=== PATIENT | male | born 1965 | race African-American/Black ===

== ENCOUNTER 2017-04-03 17:48 | Emergency (ER) | payer BC, OTHER ==
[~2017-04-03 17:48] MED LIST: Sodium Chloride 0.9% 1,000 ML BAG ONE
--- NOTE | 2017-04-03 19:26 | RAD ---
PORTABLE SUPINE CHEST ONE VIEW: History: 51-year-old male with history of tube placement. FINDINGS: An endotracheal tube is noted in place at the cervicothoracic junction. This could be advanced roughl y 7 or so cm to more completely enter the trachea. Heart size is within normal limits. No confluent p neumonia or overt edema. There is a moderate amount of gas in the somewhat distended stomach. IMPRESSION: Endotracheal tube at the cervicothoracic junction which could probably be advanced up to 7 cm for mor e optimal positioning. No significant acute intrathoracic disease. Moderate amount of gas in the stom ach. Findings were discussed with a nurse in the ER at 6:34 p.m. POS: [facility]
[2017-04-03 19:37] LABS: CKMB 3.7 ng/mL (0-6.6); Troponin I Less than 0.010 ng/mL (< 0.028)
[2017-04-03 19:39] LABS: Anion Gap 27 mmol/L (10-20); BUN (Urea Nitrogen) 7 mg/dL (8.4-25.7); Bilirubin, Total 0.3 mg/dL (0.2-1.2); Calc. Creatinine Clearance 0 mL/min (70-130); Calcium 8.7 mg/dL (7.8-10.44); Carbon Dioxide 15 mmol/L (22-29); Chloride 102 mmol/L (98-107); Estimated GFR-MDRD Greater than 90; Glucose 233 mg/dL (70-105); Potassium 3.5 mmol/L (3.5-5.1); Protein, Total 8.8 g/dL (6.0-8.3); Sodium 140 mmol/L (136-145)
[2017-04-03 19:40] LABS: ALT (SGPT) 43 U/L (8-55); AST (SGOT) 90 U/L (5-34); Albumin 4.3 g/dL (3.5-5.0); Alcohol 267 mg/dL (Less than 10); Alkaline Phosphatase 87 U/L (40-150); Globulin 4.5 g/dL (2.4-3.5)
[2017-04-03 19:41] LABS: %Lymphocytes 49.3 % (21.0-51.0); %Neutrophils 36.8 % (42.0-75.0); Hemoglobin 15.4 g/dL (14.0-18.0); Manual Diff?? NO; Mean Corpuscular HGB CONC 31.4 g/dL (32.0-36.0); Mean Corpuscular Volume 98.9 fL (80.0-94.0); Mean Platelet Volume 7.1 fL (7.4-10.4); Platelet Count 214 thou/uL (130-400); RBC Distribution Width 14.2 % (11.5-14.5); Red Blood Cell (RBC) Count 4.98 mill/uL (4.70-6.10); White Blood Cell (WBC) Count 11.9 thou/uL (4.8-10.8)
[2017-04-03 19:42] LABS: #Basophils 0.2 thou/uL (0.0-0.2); #Eosinphils 0.7 thou/uL (0.0-0.7); #Lymphocytes 5.9 thou/uL (1.20-3.40); #Monocytes 0.8 thou/uL (0.11-0.59); #Neutrophils 4.4 thou/uL (1.40-6.50); %Basophils 1.9 % (0.0-1.0); %Eosinophils 5.8 % (0.0-10.0); %Monocytes 6.3 % (0.0-10.0)
[2017-04-03 19:43] LABS: Acetaminophen Less than 6.0 mcg/mL (6.0-30.0); Alcohol 267 mg/dL (Less than 10); CK (CPK) 260 U/L (30-200)
[2017-04-03 19:44] LABS: Salicylate Less than 8.0 mg/dL (15.0-30.0)
[2017-04-03 19:49] LABS: Amphetamine Not Detected (NotDetected); Barbiturates Screen Not Detected (NotDetected); Benzodiazepine Screen Not Detected (NotDetected); Cocaine Metabolite Screen Not Detected (NotDetected); Medtox Control Line Valid? VALID (VALID); Methadone Not Detected (NotDetected); Methamphetamine Not Detected (NotDetected); Opiate Screen Not Detected (NotDetected); Oxycodone Screen Not Detected (NotDetected); Phencyclidine (PCP) Not Detected (NotDetected); THC/Cannabinoid Screen Not Detected (NotDetected); Tricyclic Screen Not Detected (NotDetected)
[2017-04-03 22:21] LABS: Bilirubin Negative (Negative); Blood, Urine Trace (Negative); Clarity Clear (Clear); Glucose, Urine (Dipstick) Negative (Negative); Leukocyte Negative (Negative); Nitrite Negative (Negative); Protein, Urine (Dipstick) Negative (Neg-Trace); Urobilinogen 0.2 mg/dL (0.2-1.0); pH, Urine 5.5 (5.0-9.0)
[2017-04-03 22:22] LABS: Specific Gravity, Urine 1.002 (1.002-1.036)
[2017-04-03 22:23] LABS: Bacteria/HPF None Seen HPF (None Seen); RBC/HPF 0-3 HPF (0-3); Squamous Epithelial 0-3 HPF (0-3)
== END 2017-04-03 18:39 | disposition short-term general hospital (02) ==
LOC: MADERS 17:48
DX: J98.8 Other specified respiratory disorders (principal)
CPT/HCPCS: 31500; 31511; 51702; 71010; 80053; 80306; 80307; 81003; 81015; 82550; 82553; 84484; 85025; 94760; 96374; J7050

== ENCOUNTER 2019-03-21 16:44 | Emergency (ER) | payer OTHER ==
[2019-03-21] MEDS ORDERED: Ibuprofen 100 MG/5 ML UDCUP ONE (16:54)
[2019-03-21] MEDS ORDERED: Acetaminophen 650 MG Suppository ONE (17:00)
[2019-03-21] MEDS ORDERED: Sodium Chloride 0.9% 1,000 ML ONE ×3 (17:04→21:05)
[2019-03-21 17:13] LABS: #Basophils 0.1 thou/uL (0.0-0.2); #Lymphocytes 1.3 thou/uL (1.20-3.40); #Monocytes 0.1 thou/uL (0.11-0.59); #Neutrophils 8.6 thou/uL (1.40-6.50); %Basophils 0.9 % (0.0-1.0); %Eosinophils 0.3 % (0.0-10.0); %Lymphocytes 12.4 % (21.0-51.0); %Monocytes 1.4 % (0.0-10.0); Mean Corpuscular HGB CONC 30.5 g/dL (32.0-36.0); Mean Corpuscular Hemoglobin 29.4 pg (27.0-31.0); Mean Corpuscular Volume 96.3 fL (78.0-98.0); Mean Platelet Volume 7.3 fL (7.4-10.4); Platelet Count 157 thou/uL (130-400); RBC Distribution Width 13.4 % (11.5-14.5); Red Blood Cell (RBC) Count 4.75 mill/uL (4.70-6.10); White Blood Cell (WBC) Count 10.1 thou/uL (4.8-10.8)
[2019-03-21] MEDS ORDERED: Cefepime 2 GM VIAL ONE (17:23)
[2019-03-21] MEDS ORDERED: Sodium Chloride 0.9% 100 ML ONE (17:24)
[2019-03-21 17:28] LABS: ALT (SGPT) 15 U/L (8-55); AST (SGOT) 14 U/L (5-34); Albumin 4.4 g/dL (3.5-5.0); Alkaline Phosphatase 66 U/L (40-110); Anion Gap 18 mmol/L (10-20); BUN (Urea Nitrogen) 13 mg/dL (8.4-25.7); Bilirubin, Total 1.5 mg/dL (0.2-1.2); Calc. Creatinine Clearance 0 mL/min (70-130); Calcium 9.3 mg/dL (7.8-10.44); Carbon Dioxide 25 mmol/L (22-29); Chloride 102 mmol/L (98-107); Estimated GFR-MDRD Greater than 90; Globulin 3.8 g/dL (2.4-3.5); Glucose 121 mg/dL (70-105); Potassium 4.6 mmol/L (3.5-5.1); Protein, Total 8.2 g/dL (6.0-8.3); Sodium 140 mmol/L (136-145)
[2019-03-21 17:33] LABS: Bicarbonate (HCO3v) 26.9 mmol/L (22.0-28.0); CO2 Tension (PvCO2) 46.1 mmHg (40.0-50.0); Calcium, Ionized 1.17 mmol/L (See Comments:); Chloride 102 mmol/L (98-107); Hemoglobin - Calc 17.1 g/dL (14.0-18.0); Potassium 4.7 mmol/L (3.5-5.1); Sodium 139 mmol/L (138-145); T. Carbon Dioxide 28.3 mmol/L (22.0-28.0); vO2 Saturation-calc 95.1 % (60.0-85.0)
[2019-03-21 17:45] LABS: CKMB 0.7 ng/mL (0-6.6)
--- NOTE | 2019-03-21 18:09 | CT ---
Exam: CT brain PROVIDED CLINICAL HISTORY: Altered mental status COMPARISON: 04/03/2017 FINDINGS: Evaluation is limited by patient motion near the vertex. The ventricular system is normal in size and morphology. There is no evidence for mass-producing intracranial hemorrhage. The extracranial soft tissues and osseous structures demonstrate no evidence for an acute abnormality. IMPRESSION: No evidence for intracranial hemorrhage or mass effect with limitations as above.
--- NOTE | 2019-03-21 18:10 | RAD ---
EXAM: Portable chest PROVIDED CLINICAL HISTORY: Fever COMPARISON: 04/05/2017 FINDINGS: Cardiac and mediastinal silhouette is within normal limits. No focal consolidation, pleural fluid or pneumothorax evident. IMPRESSION: No evidence for an acute cardiopulmonary process.
[2019-03-21 20:37] LABS: Bilirubin Negative (Negative); Blood, Urine Small (Negative); Clarity Clear (Clear); Glucose, Urine (Dipstick) Negative (Negative); Leukocyte Moderate (Negative); Nitrite Positive (Negative); Protein, Urine (Dipstick) 30 mg/dL (Neg-Trace); Urobilinogen 0.2 mg/dL (Less than 2)
[2019-03-21 20:42] LABS: Bacteria/HPF 1+ HPF (None Seen); RBC/HPF 0-3 HPF (0-3); Squamous Epithelial 0-3 HPF (0-3); WBC/HPF 21-50 HPF (0-3)
== END 2019-03-21 21:55 | disposition short-term general hospital (02) ==
LOC: MADERS 16:44
DX: A41.9 Sepsis, unspecified organism (principal); N39.0 Urinary tract infection, site not specified; F17.210 Nicotine dependence, cigarettes, uncomplicated
CPT/HCPCS: 70450; 71045; 80053; 81003; 81015; 82330; 82553; 82803; 83605; 83880; 84484; 85025; 87040; 87086; 87804; 93005; 96360; 96361; 96365; J0692; J3490; J7050

== ENCOUNTER 2021-08-02 16:47 | Emergency (ER) | payer OTHER ==
[~2021-08-02 16:47] MED LIST changes: +Iopamidol 370 76% 100 ML VIAL ONE; -Sodium Chloride 0.9% 1,000 ML BAG ONE
[2021-08-02 17:33] LABS: #Basophils 0.2 thou/uL (0.0-0.2); #Eosinphils 0.6 thou/uL (0.0-0.7); #Lymphocytes 1.6 thou/uL (1.20-3.40); #Monocytes 0.8 thou/uL (0.11-0.59); #Neutrophils 6.3 thou/uL (1.40-6.50); %Basophils 1.8 % (0.0-1.0); %Eosinophils 5.9 % (0.0-10.0); %Lymphocytes 16.5 % (21.0-51.0); %Monocytes 8.9 % (0.0-10.0); %Neutrophils 66.9 % (42.0-75.0); Hemoglobin 13.7 g/dL (14.0-18.0); Mean Corpuscular Hemoglobin 31.2 pg (27.0-31.0); Mean Corpuscular Volume 94.5 fL (78.0-98.0); Mean Platelet Volume 8.2 fL (7.4-10.4); Platelet Count 289 thou/uL (130-400); RBC Distribution Width 12.7 % (11.5-14.5); White Blood Cell (WBC) Count 9.5 thou/uL (4.8-10.8)
[2021-08-02 17:46] LABS: ALT (SGPT) 31 U/L (8-55); AST (SGOT) 32 U/L (5-34); Albumin 3.7 g/dL (3.5-5.0); Alkaline Phosphatase 91 U/L (40-110); Anion Gap 16 mmol/L (10-20); BUN (Urea Nitrogen) 11 mg/dL (8.4-25.7); Bilirubin, Total 0.3 mg/dL (0.2-1.2); Calc. Creatinine Clearance 0 mL/min (70-130); Calcium 9.5 mg/dL (7.8-10.44); Carbon Dioxide 29 mmol/L (22-29); Chloride 99 mmol/L (98-107); Globulin 4.6 g/dL (2.4-3.5); Glucose 108 mg/dL (70-105); Magnesium 2.1 mg/dL (1.6-2.6); Potassium 4.6 mmol/L (3.5-5.1); Protein, Total 8.3 g/dL (6.0-8.3); Sodium 139 mmol/L (136-145)
[2021-08-02] MEDS ORDERED: Diazepam 5 MG TAB ONE (17:49)
[2021-08-02] MEDS ORDERED: Lactated Ringer's 1,000 ML ONE (17:49)
[2021-08-02] MEDS ORDERED: Albuterol 200 PUFF (6.7GM INHALER) ONE (17:49)
[2021-08-02] MEDS ORDERED: Acetaminophen 500 MG TAB ONE (17:55)
[2021-08-02] MEDS ORDERED: predniSONE 20 MG TAB ONE (17:55)
[2021-08-02] MEDS ORDERED: predniSONE 10 MG TAB ONE (17:55)
[2021-08-02] MEDS ORDERED: Azithromycin 250 MG TAB ONE (20:22)
[2021-08-02] MEDS ORDERED: Azithromycin 200 MG/5 ML Oral Suspension ONE (20:23)
== END 2021-08-02 20:35 | disposition home or self-care (01) ==
LOC: MADERS 16:47
DX: J98.59 Other diseases of mediastinum, not elsewhere classified (principal); J44.1 Chronic obstructive pulmonary disease with (acute) exacerbation; E03.9 Hypothyroidism, unspecified; J39.8 Other specified diseases of upper respiratory tract; F17.210 Nicotine dependence, cigarettes, uncomplicated
CPT/HCPCS: 71045; 71046; 71260; 80053; 83605; 83735; 84443; 85025; 87040; 93005; 94760; J7120; J7512; Q9967

== ENCOUNTER 2021-08-08 21:24 | Emergency (ER) | payer OTHER ==
[2021-08-08] MEDS ORDERED: methylPREDNISolone Sod Succ/PF 125 MG/2 ML VIAL ONE (21:46)
[2021-08-08 22:11] LABS: #Basophils 0.2 thou/uL (0.0-0.2); #Eosinphils 0.3 thou/uL (0.0-0.7); #Lymphocytes 2.2 thou/uL (1.20-3.40); #Monocytes 1.2 thou/uL (0.11-0.59); #Neutrophils 6.3 thou/uL (1.40-6.50); %Basophils 1.9 % (0.0-1.0); %Lymphocytes 21.6 % (21.0-51.0); %Monocytes 11.5 % (0.0-10.0); Hemoglobin 13.1 g/dL (14.0-18.0); Mean Corpuscular HGB CONC 30.5 g/dL (32.0-36.0); Mean Corpuscular Hemoglobin 28.9 pg (27.0-31.0); Mean Corpuscular Volume 94.7 fL (78.0-98.0); Mean Platelet Volume 8.2 fL (7.4-10.4); Platelet Count 317 thou/uL (130-400); RBC Distribution Width 12.5 % (11.5-14.5); Red Blood Cell (RBC) Count 4.54 mill/uL (4.70-6.10); White Blood Cell (WBC) Count 10.1 thou/uL (4.8-10.8)
[2021-08-08 22:19] LABS: ALT (SGPT) 108 U/L (8-55); AST (SGOT) 62 U/L (5-34); Albumin 3.7 g/dL (3.5-5.0); Alkaline Phosphatase 97 U/L (40-110); Anion Gap 18 mmol/L (10-20); BUN (Urea Nitrogen) 10 mg/dL (8.4-25.7); Bilirubin, Total 0.5 mg/dL (0.2-1.2); Calc. Creatinine Clearance 0 mL/min (70-130); Calcium 9.8 mg/dL (7.8-10.44); Carbon Dioxide 29 mmol/L (22-29); Chloride 97 mmol/L (98-107); Globulin 4.7 g/dL (2.4-3.5); Glucose 97 mg/dL (70-105); Magnesium 2.1 mg/dL (1.6-2.6); Potassium 3.8 mmol/L (3.5-5.1); Protein, Total 8.4 g/dL (6.0-8.3); Sodium 140 mmol/L (136-145)
[2021-08-08] MEDS ORDERED: Magnesium 2 GM/50 ML BAG (IN WATER) ONE (23:25)
[2021-08-08 23:57] LABS: SARS-CoV-2 NAA Rapid Test Not Detected (NotDetected)
== END 2021-08-08 23:59 | disposition short-term general hospital (02) ==
LOC: MADERS 21:24
DX: J96.00 Acute respiratory failure, unspecified whether with hypoxia or hypercapnia (principal); J44.1 Chronic obstructive pulmonary disease with (acute) exacerbation; J98.59 Other diseases of mediastinum, not elsewhere classified; Z20.822 Contact with and (suspected) exposure to COVID-19; F17.210 Nicotine dependence, cigarettes, uncomplicated
CPT/HCPCS: 71045; 80053; 83735; 83880; 84484; 85025; 87040; 93005; 96365; 96375; J2930; J3475; J7620